=== PATIENT | male | born 1990 | race Caucasian/White ===

== ENCOUNTER → 2020-09-23 14:28 | Outpatient (BNVA) | payer SELFPAY | PROVIDERS: PCP Nurse Practitioner; Visit Provider Emergency Medicine | DX: Z20.828 Contact with and (suspected) exposure to other viral communicable diseases (principal); Z11.59 Encounter for screening for other viral diseases | CPT/HCPCS: 86710; 87635 ==

== ENCOUNTER 2021-07-25 09:08 | Outpatient (CLI) | payer SELFPAY ==
--- NOTE | 2021-07-25 09:17 | XR_ITS ---
WS: [id number] XR hand LT min 3V* [id number] REASON FOR EXAM: LEFT HAND PAIN FINDINGS: Minor changes of osteoarthritis in the DIP joints of the left fingers with small marginal osteophytes and minimal joint space narrowing. Similar arthropathy in the PIP joint of the fifth finger. No other significant bony or joint abnormality identified. No soft tissue abnormality identified. XR/XR hand LT min 3V* [id number] IMPRESSION: Minor changes of osteoarthritis of the left hand as above.
== END 2021-07-25 09:09 | disposition home or self-care (01) ==
PROVIDERS: PCP Nurse Practitioner; Visit Provider Nurse Practitioner Family
DX: M79.642 Pain in left hand (principal)
CPT/HCPCS: 73130

== ENCOUNTER → 2022-10-30 11:55 | Outpatient (BNVA) | payer SELFPAY | PROVIDERS: PCP Nurse Practitioner; Visit Provider Nurse Practitioner Family | DX: F41.9 Anxiety disorder, unspecified (principal); F41.0 Panic disorder [episodic paroxysmal anxiety]; N52.9 Male erectile dysfunction, unspecified | CPT/HCPCS: 80053; 84402; 84403 ==

== ENCOUNTER 2023-11-07 01:01 | Emergency (ER) | payer MEDICAID, SELFPAY ==
[2023-11-07 01:02] VITALS: BP 123/74; PULSE 88; RESP 17; TEMP 37.3; O2SAT 98; BMI 22.3
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
[2023-11-07 02:15] VITALS: BP 123/74; PULSE 88; RESP 17; TEMP 37.3; O2SAT 98
== END 2023-11-07 02:17 | disposition home or self-care (01) ==
PROVIDERS: Emergency Provider Emergency Medicine; PCP Nurse Practitioner
DX: S01.01XA Laceration without foreign body of scalp, initial encounter (principal); M25.511 Pain in right shoulder; Z72.0 Tobacco use; Y04.2XXA Assault by strike against or bumped into by another person, initial encounter
CPT/HCPCS: 12002; 73030; 99283